=== PATIENT | male | born 1995 ===

== ENCOUNTER 2023-08-10 22:05 | Emergency (ER) | payer SELFPAY ==
[2023-08-10 22:22] LABS: BASOPHILS ABSOLUTE AUTO 0.06 K/uL (0.00-0.20); BASOPHILS PERCENT AUTO 0.7 % (0.0-1.0); EOSINOPHILS ABSOLUTE AUTO 0.08 K/uL (0.00-0.45); EOSINOPHILS PERCENT AUTO 0.9 % (0.0-6.0); HEMATOCRIT 44.6 % (42.0-52.0); HEMOGLOBIN 15.4 g/dL (14.0-18.0); IMMATURE GRAN ABSOLUTE AUTO 0.01 K/uL (0.00-0.05); IMMATURE GRAN PERCENT AUTO 0.1 % (0.0-0.4); LYMPHOCYTES ABSOLUTE AUTO 3.09 K/uL (1.00-4.80); LYMPHOCYTES PERCENT AUTO 34.1 % (24.0-44.0); MEAN CORPUSCULAR HEMOGLOBIN 30.8 pg (28.0-32.0); MEAN CORPUSCULAR HGB CONC 34.5 g/dL (32.0-36.0); MEAN CORPUSCULAR VOLUME 89.2 fL (83.0-99.0); MEAN PLATELET VOLUME 9.1 fL (9.4-12.4); MONOCYTES ABSOLUTE AUTO 0.64 K/uL (0.00-0.80); MONOCYTES PERCENT AUTO 7.1 % (0.0-8.0); NEUTROPHILS ABSOLUTE AUTO 5.19 K/uL (1.80-7.70); NEUTROPHILS PERCENT AUTO 57.1 % (41.0-71.0); PLATELET COUNT,PLT 304 K/uL (150-400); WHITE BLOOD CELL COUNT,WBC 9.07 K/uL (3.9-11.3)
[2023-08-10 22:52] LABS: A/G RATIO 1.1 (0.9-1.6); ALBUMIN 4.4 g/dL (3.4-5.0); BILIRUBIN TOTAL 0.2 mg/dL (0.2-1.0); CALCIUM 9.1 mg/dL (8.5-10.1); CARBON DIOXIDE,CO2 27.8 mmol/L (21.0-32.0); CREATININE 1.1 mg/dL (0.8-1.3); POTASSIUM,K 3.3 mmol/L (3.5-5.1); PROTEIN TOTAL,TP 8.5 g/dL (6.4-8.2)
[2023-08-10 22:57] LABS: MAGNESIUM 2.1 mg/dL (1.8-2.4)
[2023-08-10] MEDS: Sodium Chloride 0.9% 2.5 ML Syringe FLUSH PRN (23:13)
[2023-08-10] MEDS: Sodium Chloride 0.9% 10 ML Syringe FLUSH PRN (23:13)
== END 2023-08-11 00:58 | disposition home or self-care (01) ==
LOC: MW.ED 22:05
DX: R07.89 Other chest pain (principal)
CPT/HCPCS: 36415; 71045; 80053; 83690; 83735; 84484; 85025; 85379; 93005; 99285; J3490; 93010; 99282

== ENCOUNTER 2023-09-19 18:34 | Emergency (ER) | payer OTHER ==
[2023-09-19] MEDS: Sodium Chloride 0.9% 10 ML Syringe FLUSH PRN (18:46)
[2023-09-19] MEDS: Sodium Chloride 0.9% 2.5 ML Syringe FLUSH PRN (18:46)
[2023-09-19 18:59] LABS: BASOPHILS ABSOLUTE AUTO 0.04 K/uL (0.00-0.20); BASOPHILS PERCENT AUTO 0.7 % (0.0-1.0); EOSINOPHILS ABSOLUTE AUTO 0.03 K/uL (0.00-0.45); EOSINOPHILS PERCENT AUTO 0.5 % (0.0-6.0); HEMATOCRIT 44.4 % (42.0-52.0); HEMOGLOBIN 15.1 g/dL (14.0-18.0); LYMPHOCYTES ABSOLUTE AUTO 2.17 K/uL (1.00-4.80); MEAN CORPUSCULAR HEMOGLOBIN 30.4 pg (28.0-32.0); MEAN CORPUSCULAR VOLUME 89.3 fL (83.0-99.0); MEAN PLATELET VOLUME 9.6 fL (9.4-12.4); MONOCYTES ABSOLUTE AUTO 0.31 K/uL (0.00-0.80); MONOCYTES PERCENT AUTO 5.1 % (0.0-8.0); NEUTROPHILS ABSOLUTE AUTO 3.48 K/uL (1.80-7.70); NEUTROPHILS PERCENT AUTO 57.7 % (41.0-71.0); PLATELET COUNT,PLT 252 K/uL (150-400); RED BLOOD CELL COUNT 4.97 M/uL (4.52-5.90); WHITE BLOOD CELL COUNT,WBC 6.03 K/uL (3.9-11.3)
[2023-09-19 19:24] LABS: A/G RATIO 1.1 (0.9-1.6); ALBUMIN 4.4 g/dL (3.4-5.0); BILIRUBIN TOTAL 0.4 mg/dL (0.2-1.0); CALCIUM 9.8 mg/dL (8.5-10.1); CARBON DIOXIDE,CO2 28.6 mmol/L (21.0-32.0); CREATININE 1.3 mg/dL (0.8-1.3); EST CRCL DRUG DOSING (CG) 93.68 mL/min; POTASSIUM,K 3.4 mmol/L (3.5-5.1); PROTEIN TOTAL,TP 8.3 g/dL (6.4-8.2)
[2023-09-19 19:25] LABS: MAGNESIUM 1.6 mg/dL (1.8-2.4)
[2023-09-19] MEDS: Magnesium Oxide 400 MG Tab PO STA (20:24)
== END 2023-09-19 20:28 | disposition home or self-care (01) ==
LOC: MW.ED 18:34
DX: R55 Syncope and collapse (principal); Z75.8 Other problems related to medical facilities and other health care
CPT/HCPCS: 36415; 70450; 80053; 82947; 83690; 83735; 84484; 85025; 85379; 93005; 99284; A9270; J3490; 93010; 99282